=== PATIENT | female | born 1945 | race Caucasian/White ===

== ENCOUNTER 2018-03-04 09:15 | Observation (INO) | payer MEDICARE, OTHER ==
[~2018-03-04] VITALS: Ht 152.4 cm; Wt 68.0 kg
[~2018-03-04 09:15] MED LIST: CALCIUM; FISH OIL; GLUCOSAMINE CH1 EAC9; PRILOSEC; TRILIPIX; Z B COMPLEX PO; Z EFFEXOR PO; Z.0.SYNTHROID75 MCG PO
--- OUTSIDE RECORDS SUMMARY | 2018-03-04 09:18 | XMS REPORT | Clinical Summary ---
Author Author [facility] Address Unknown Phone Unavailable Care Team Providers Care Veneer Patcher Name Role Phone Aldair Soria MD PCP Allergies Active Allergy Reactions Severity Noted Date Comments Penicillins 07/28/2017 Current Medications Prescription Sig. Disp. Refills Start End Date Status Date SYNTHROID 75 mcg tablet 06/17/20 Active 17 venlafaxine XR 06/17/20 Active (EFFEXOR-XR) 75 MG 24 hr 17 capsule valGANciclovir (VALCYTE) Take 450 mg by mouth Active 450 mg tablet daily. multivitamin with Take 1 tablet by mouth Active minerals tablet daily. Saccharomyces boulardii Take 250 mg by mouth 2 Active (FLORASTOR) 250 mg (two) times a day. capsule Active Problems Not on file Encounters Date Type Specialty Care Team Description 09/18/2017 Office Visit Ophthalmology Zaida Nunez MD Benign tumor of eye, right (Primary Dx); Visual field defect; Retinal tumor of right eye; Disorder of visual pathway; Unspecified visual field defects 09/11/2017 [facility] Radiology Zaida Nunez MD Optic nerve lesion, Encounter right; Mass of optic nerve 09/11/2017 [facility] Radiology Zaida Nunez MD Gliosis of optic nerve, Encounter right; Optic nerve disease, unspecified laterality 08/08/2017 Telephone Ophthalmology Zaida Nunez MD 08/04/2017 Transcribe Access Zaida Nunez MD Gliosis of optic nerve, Orders right (Primary Dx); Optic nerve disease, unspecified laterality 07/28/2017 Office Visit Ophthalmology Zaida Nunez MD Mass of optic nerve (Primary Dx); Unspecified visual field defects; Disorder of visual pathway; Optic nerve lesion, right; Visual field defects; Pseudophakia of right eye; Nuclear cataract of left eye; Blurred vision, bilateral; Astigmatism with presbyopia, bilateral; Choroidal nevus of right eye 07/28/2017 Procedure Pass Radiology after 03/03/2017 Family History Medical History Relation Name Comments No Known Problems Brother No Known Problems Brother Heart attack Father No Known Problems Maternal Grandfather Stroke Maternal Grandmother Diabetes Mother No Known Problems Paternal Grandfather No Known Problems Paternal Grandmother Cancer Sister Diabetes Sister No Known Problems Sister Relation Name Status Comments Brother Alive Brother Alive Father Maternal Grandfather Maternal Grandmother Mother Paternal Grandfather Paternal Grandmother Sister Sister Alive Sister Alive Social History Tobacco Use Types Packs/Day Years Used Date Never Smoker Alcohol Use Drinks/Week oz/Week Comments No Sex Assigned at Date Recorded Not on file Last Filed Vital Signs Vital Sign Reading Time Taken Blood Pressure - - Pulse - - Temperature - - Respiratory Rate - - Oxygen Saturation - - Inhaled Oxygen - - Concentration Weight 68 kg (150 lb) 09/18/2017 11:18 AM SPINNER FIXER Height 152.4 cm (5') 09/18/2017 11:18 AM SPINNER FIXER Body Mass Index 29.29 09/18/2017 11:18 AM SPINNER FIXER Plan of Treatment Health Maintenance Due Date Last Done Comments COLONOSCOPY 1997 MAMMOGRAM 1997 SHINGRIX VACCINE (#1) 1997 ZOSTER VACCINE 2007 PNEUMOCOCCAL 2012 POLYSACCHARIDE VACCINE AGE 65 AND OVER PNEUMOCOCCAL-13 2012 INFLUENZA VACCINE 06/10/2018 Procedures Procedure Name Priority Date/Time Associated Diagnosis Comments AUTOMATED VISUAL FIELD, Routine 09/18/2017 Unspecified visual field Results for this EXTENDED - OU - BOTH EYES 11:33 AM SPINNER FIXER defects procedure are in the Benign tumor of eye, results section. right OCT, OPTIC NERVE - OU - Routine 09/18/2017 Disorder of visual Results for this BOTH EYES 11:33 AM SPINNER FIXER pathway procedure are in the Benign tumor of eye, results section. right AUTOMATED VISUAL FIELD, Routine 07/28/2017 Unspecified visual field Results for this EXTENDED - OU - BOTH EYES 2:30 PM CDT defects procedure are in the Optic nerve lesion, right results section. OCT, OPTIC NERVE - OU - Routine 07/28/2017 Disorder of visual Results for this BOTH EYES 2:30 PM CDT pathway procedure are in the Optic nerve lesion, right results section. after 03/03/2017 Results * Automated Visual Field, Extended - OU (09/18/2017 11:33 AM) Narrative Right Eye Threshold was 24-2. Strategy was OCTAVIO. -2.19. Findings include normal observations, non-specific defects. Left Eye Threshold was 24-2. Strategy was OCTAVIO. -3.33. Findings include normal observations, non-specific defects. * OCT, Optic Nerve - OU (09/18/2017 11:33 AM) Narrative OD: 81, 84 OS: 77, 80 * MRI Brain & Orbit W Wo Contrast (09/11/2017 1:35 PM) Specimen Performing Laboratory [facility] [address] [place] [address] Narrative EXAMINATION:MRI brain with and without contrast. MRI the orbits with and without contrast. CLINICAL HISTORY:H47.091 Other disorders of optic nervenot elsewhere classifiedright eye, H47.099 Other disorders of optic nervenot elsewhere classifiedunspecified eye, Right intraconal mass COMPARISON:None. FINDINGS: MRI ORBITS WITH AND WITHOUT CONTRAST: There is a small oval-shaped mass in the right intraconal fat just lateral to the optic nerve sheath. It measures 6.4 mm in AP dimension by 4.5 mm in transverse dimension by 5.8 mm in height. It shows mild increased signal on the T2-weighted images and decreased signal on the T1-weighted images. There is minimal enhancement in the posterior wall of the mass on the axial and coronal high-resolution images with contrast through the orbits. This is a nonspecific finding and could have benign or malignant etiologies. Correlation with old exams would be helpful to evaluate for any changes. There is normal signal intensity without abnormal enhancement in the optic nerves and chiasm. There is right pseudophakia. MRI BRAIN WITH AND WITHOUT CONTRAST: There is no evidence of acute infarct, intracranial hemorrhage or mass, hydrocephalus or midline shift.There is nonspecific enlargement of the ventricles and extra-axial space more prominent in the anterior region. The sella is enlarged and partially empty. IMPRESSION: Small nonspecific well-circumscribed mass in the mid third of the right intraconal fat just lateral to the optic nerve sheath. Enlarged partially empty sella. [id number] Procedure Note Interface, Radiology Results Incoming - 09/11/2017 3:06 PM CDT EXAMINATION: MRI brain with and without contrast. MRI the orbits with and without contrast. CLINICAL HISTORY: H47.091 Other disorders of optic nerve not elsewhere classified right eye, H47.099 Other disorders of optic nerve not elsewhere classified unspecified eye, Right intraconal mass COMPARISON: None. FINDINGS: MRI ORBITS WITH AND WITHOUT CONTRAST: There is a small oval-shaped mass in the right intraconal fat just lateral to the optic nerve sheath. It measures 6.4 mm in AP dimension by 4.5 mm in transverse dimension by 5.8 mm in height. It shows mild increased signal on the T2-weighted images and decreased signal on the T1-weighted images. There is minimal enhancement in the posterior wall of the mass on the axial and coronal high-resolution images with contrast through the orbits. This is a nonspecific finding and could have benign or malignant etiologies. Correlation with old exams would be helpful to evaluate for any changes. There is normal signal intensity without abnormal enhancement in the optic nerves and chiasm. There is right pseudophakia. MRI BRAIN WITH AND WITHOUT CONTRAST: There is no evidence of acute infarct, intracranial hemorrhage or mass, hydrocephalus or midline shift. There is nonspecific enlargement of the ventricles and extra-axial space more prominent in the anterior region. The sella is enlarged and partially empty. IMPRESSION: Small nonspecific well-circumscribed mass in the mid third of the right intraconal fat just lateral to the optic nerve sheath. Enlarged partially empty sella. [facility] [id number] * POC creatinine (09/11/2017 12:33 PM) Component Value Ref Range POC creatinine 0.8 0.5 - 0.9 mg/dl Specimen Performing Laboratory Blood [facility] DEPARTMENT OF PATHOLOGY AND GENOMIC MEDICINE [address] [place] [address] * Automated Visual Field, Extended - OU (07/28/2017 2:30 PM) Narrative Right Eye Threshold was 24-2. Strategy was OCTAVIO. -3.25. Findings include non-specific defects. Left Eye Threshold was 24-2. Strategy was OCTAVIO. -1.46. Findings include non-specific defects. * OCT, Optic Nerve - OU (07/28/2017 2:30 PM) Narrative OD: 84 OS: 80 after 03/03/2017 Insurance Payer Benefit Subscriber ID Type Phone Address Plan / Group HUMANA MEDICARE HUMANA xxxxxxxxx PPO MEDICARE PPO/PFFS/E [facility]
[2018-03-04] MEDS ORDERED: SODIUM CHLORIDE 0.9% 1000ML 1,000 ML IV STA (09:28)
[2018-03-04 09:52] LABS: BASOPHILS % 0.3 % (0.0-1.0); EOSINOPHILS # (AUTO) 0.1 (0.0-0.4); EOSINOPHILS % 0.7 % (0.0-6.0); HEMATOCRIT 38.3 % (34.2-44.1); HEMOGLOBIN 12.7 g/dL (12.0-16.0); LYMPHOCYTES # (AUTO) 0.5 (1.0-3.2); LYMPHOCYTES % 4.3 % (18.0-39.1); MEAN CORPUSCULAR HEMOGLOBIN 31.6 pg (28-32); MEAN CORPUSCULAR HGB CONC 33.2 g/dL (31-35); MEAN CORPUSCULAR VOLUME 95.3 fL (81-99); MONOCYTES # (AUTO) 0.4 (0.2-0.8); MONOCYTES % 3.1 % (4.4-11.3); NEUTROPHILS # (AUTO) 10.7 (2.1-6.9); NEUTROPHILS % 91.3 % (38.7-80.0); PLATELET COUNT 323 x10e3/uL (140-360); RED BLOOD COUNT 4.02 x10e6/uL (3.6-5.1); RED CELL DISTRIBUTION WIDTH 14.6 % (11.7-14.4)
[2018-03-04 10:12] LABS: ALANINE AMINOTRANSFERASE 17 IU/L (0-55); ALBUMIN 3.8 g/dL (3.5-5.0); ALBUMIN/GLOBULIN RATIO 1.2 (0.8-2.0); ALKALINE PHOSPHATASE 67 IU/L (40-150); ANION GAP 13.1 mmol/L (8-16); BLOOD UREA NITROGEN 23 mg/dL (7-26); BUN/CREATININE RATIO 32 (6-25); CARBON DIOXIDE 26 mmol/L (22-29); CHLORIDE 106 mmol/L (98-107); CREATINE KINASE 165 IU/L (29-168); CREATININE, SERUM 0.72 mg/dL (0.57-1.11); EST GLOMERULAR FILTRATION RATE > 60 ML/MIN (60-); GLUCOSE 122 mg/dL (74-118); MAGNESIUM 1.8 MG/DL (1.3-2.1); POTASSIUM 4.1 mmol/L (3.5-5.1); SODIUM 141 mmol/L (136-145)
[2018-03-04 10:23] LABS: INR 1.15; PROTHROMBIN TIME 13.8 seconds (11.9-14.5)
[2018-03-04 10:24] LABS: PARTIAL THROMBOPLASTIN TIME 27.2 seconds (23.8-35.5)
--- NOTE | 2018-03-04 11:21 | Diagnostic Imaging Report ---
EXAMINATION: Head CT HISTORY: Syncope, now shaft, lightheadedness, LOC, fever, UTI COMPARISON: None. TECHNIQUE: Multidetector axial images were obtained without contrast from the foramen magnum to the vertex . The images were reconstructed using brain and bone algorithms. Thin section brain images were reformatted into coronal and sagittal planes. Intravenous contrast: None. Motion/streaking artifact limits the evaluation of the skull base and posterior cranial fossa. FINDINGS: Parenchyma: 1. No abnormal densities. 2. No mass or hemorrhage. No CT evidence of acute territorial vascular insult. Extra-axial spaces:No abnormal density. No extra-axial fluid collections Brain volume: Normal for age. Ventricles: No hydrocephalus or displacement. Arteries: No density suggestive of thrombus. Dural sinuses: No abnormal density. Extra-axial spaces: No abnormal density. Foramen magnum: No mass, Chiari malformation, or basilar invagination. Sella: Enlarged, partially empty, mostly CSF field. Paranasal/mastoid sinuses: Imaged portions unremarkable. Skull/Scalp: No lytic or blastic lesions. No fractures. IMPRESSION: No intracranial abnormalities, particularly no hemorrhage, mass or acute cortical infarct. Signed by: Dr. Fiona Hurtado M.D. on 03/04/2018 11:17 AM
--- NOTE | 2018-03-04 11:26 | Diagnostic Imaging Report ---
PROCEDURE:X-RAY RIGHT ANKLE, COMPLETE TECHNIQUE: INDICATION: COMPARISON:None. FINDINGS:Comminuted nondisplaced fracture of the distal diaphysis of the right fibula. The fracture is in two major parts, the proximal component is at the level of the junction of the mid and distal diaphysis and the distal component is at the level of the syndesmosis. The major fracture fragments are in near anatomic alignment. No expansile lytic or sclerotic lesion. Minimal soft tissue swelling in the lateral malleolus. CONCLUSION: Comminuted fracture in the distal right fibula. Correlate clinically for instability. Dictated by: Shahid Flores M.D. on 03/04/2018 at 11:28 Electronically approved by: Shahid Flores M.D. on 03/04/2018 at 11:28
--- NOTE | 2018-03-04 11:28 | Diagnostic Imaging Report ---
PROCEDURE:X-RAY RIGHT FOOT, COMPLETE COMPARISON:None. INDICATIONS:FOOT PAIN FINDINGS: Partially visualized fracture of the distal right fibula. Otherwise, there are no fractures, dislocations, lytic or blastic lesions. Postoperative changes of the right first metatarsal. The bones are well-mineralized. The soft-tissues are unremarkable. CONCLUSION: No acute radiographic abnormality. Dictated by: Shahid Flores M.D. on 03/04/2018 at 11:29 Electronically approved by: Shahid Flores M.D. on 03/04/2018 at 11:29
--- NOTE | 2018-03-04 11:54 | Diagnostic Imaging Report ---
PROCEDURE: CT scan of the chest WITH intravenous contrast, using standard protocol. TECHNIQUE: The chest was scanned utilizing a multidetector helical scanner from the lung apex through the level of the adrenal glands after the IV administration of 100 cc of Isovue 370. Coronal and sagittal multiplanar reformations were obtained. COMPARISON: None. INDICATIONS: PUMONARY EMBOLISM FINDINGS: Lines/tubes: None. Lungs and Airways: The lungs and airways are normal with no focal abnormality demonstrated. Bibasilar atelectasis. Pleura: The pleural spaces are clear. Heart and mediastinum: The thyroid gland is normal. No significant mediastinal, hilar or axillary lymphadenopathy is seen. The heart and pericardium are within normal limits. Soft tissues: Normal. Abdomen: Limited contrast-enhanced views of the upper abdomen show no abnormality within the visualized liver, spleen, pancreas, or kidneys. Cholecystectomy. The adrenal glands are normal. Bones: The visualized bony thorax is within normal limits. IMPRESSION: No acute abnormality of the chest. No evidence of pulmonary arterial thromboembolism to the segmental level. Dictated by: Shahid Flores M.D. on 03/04/2018 at 11:55 Electronically approved by: Shahid Flores M.D. on 03/04/2018 at 11:55
[2018-03-04 11:56] LABS: CLARITY,URINE CLEAR (CLEAR); COLOR,URINE YELLOW (YELLOW); LEUKOCYTE ESTERASE ,URINE NEGATIVE (NEGATIVE); NITRITE,URINE POSITIVE (NEGATIVE); PROTEIN,URINE DIPSTICK NEGATIVE (NEGATIVE)
[2018-03-04 11:57] LABS: BILIRUBIN,URINE NEGATIVE (NEGATIVE); KETONES,URINE NEGATIVE (NEGATIVE); URINE UROBILINOGEN 0.2 mg/dL (0.2 - 1)
[2018-03-04] MEDS ORDERED: ASPIRIN 81 MG CHEW TAB PO ONE (12:00)
[2018-03-04] MEDS ORDERED: ENOXAPARIN SODIUM INJ 100 MG/ML SYR SC SCH (12:00)
[2018-03-04] MEDS ORDERED: ENOXAPARIN INJ 80 MG/0.8 ML SYR SC STA (12:01)
[2018-03-04 12:04] LABS: BACTERIA,URINE RARE /HPF; EPITHELIAL CELLS,URINE MODERATE /LPF; TRANSITIONAL EPI CELLS,URINE FEW
[2018-03-04] MEDS ORDERED: MORPHINE SULFATE 2 MG/ML SYR IV STA (12:45)
[2018-03-04] MEDS ORDERED: ONDANSETRON HCL 4 MG ORAL DISINTEGRATING TAB PO ONE (12:45)
--- OUTSIDE RECORDS SUMMARY | 2018-03-04 12:50 | XMS REPORT | Clinical Summary ---
Author Author [facility] Address Unknown Phone Unavailable Care Team Providers Care Icing Machine Operator Name Role Phone Aldair Soria MD PCP [...] visual pathway; Unspecified visual field defects 09/11/2017 [facility] Radiology Zaida Nunez MD Optic nerve lesion, Encounter right; Mass of optic nerve 09/11/2017 [facility] Radiology Zaida Nunez MD Gliosis of optic [...] 68 kg (150 lb) 09/18/2017 11:18 AM BUNDLE CLERK Height 152.4 cm (5') 09/18/2017 11:18 AM BUNDLE CLERK Body Mass Index 29.29 09/18/2017 11:18 AM BUNDLE CLERK Plan of Treatment Health Maintenance Due Date Last Done Comments COLONOSCOPY 1997 MAMMOGRAM 1997 SHINGRIX VACCINE (#1) 1997 ZOSTER VACCINE 2007 PNEUMOCOCCAL 2012 POLYSACCHARIDE VACCINE AGE 65 AND OVER PNEUMOCOCCAL-13 2012 INFLUENZA VACCINE 06/10/2018 Procedures Procedure Name Priority Date/Time Associated Diagnosis Comments AUTOMATED VISUAL FIELD, Routine 09/18/2017 Unspecified visual field Results for this EXTENDED - OU - BOTH EYES 11:33 AM BUNDLE CLERK defects procedure are in the Benign tumor of eye, results section. right OCT, OPTIC NERVE - OU - Routine 09/18/2017 Disorder of visual Results for this BOTH EYES 11:33 AM BUNDLE CLERK pathway procedure are in the Benign tumor [...] 1:35 PM) Specimen Performing Laboratory [facility] [address] [place] [address] Narrative EXAMINATION:MRI brain with and without contrast. [...] optic nerve sheath. Enlarged partially empty sella. [id number] Procedure Note Interface, Radiology Results Incoming - [...] optic nerve sheath. Enlarged partially empty sella. [id number] * POC creatinine (09/11/2017 12:33 PM) Component Value Ref Range POC creatinine 0.8 0.5 - 0.9 mg/dl Specimen Performing Laboratory Blood [facility] DEPARTMENT OF PATHOLOGY AND GENOMIC MEDICINE [address] [place] [address] * Automated Visual Field, Extended - OU [...] HUMANA MEDICARE HUMANA xxxxxxxxx PPO MEDICARE PPO/PFFS/E [facility]
--- OUTSIDE RECORDS SUMMARY | 2018-03-04 12:50 | XMS REPORT ---
Author Author [facility] Address Unknown Phone Unavailable Care Team Providers Care Heat Treater Helper Name Role Phone FEI RODRÍGUEZ Unavailable Unavailable Problems This patient has no known problems. Allergies, Adverse Reactions, Alerts This patient has no known allergies or adverse reactions. Medications This patient has no known medications. Results Test Description Test Time Test Comments Text Results Atomic Results Result Comments ANKLE 3 + VIEWS RIGHT [place] [id number] [place] [address] Patient Name: ROSA GALLAGHER MR #: [id number] : 1945 Age/Sex: 72/F Req #: [id number] [facility] Physician: Ordered by: FEI RODRÍGUEZ MD Report #: [id number] Location: ER Room/Bed: Procedure: [id number] DX/ANKLE 3 + VIEWS RIGHT Exam Date: 03/04/18 Exam Time: 1000 REPORT STATUS: Signed PROCEDURE: X-RAY RIGHT ANKLE, COMPLETE TECHNIQUE: INDICATION: COMPARISON: None. FINDINGS: Comminuted nondisplaced fracture of the distal diaphysis of the right fibula. The fracture is in two major parts, the proximal component is at the level of the junction of the mid and distal diaphysis and the distal component is at the level of the syndesmosis. The major fracture fragments are in near anatomic alignment. No expansile lytic or sclerotic lesion. Minimal soft tissue swelling in the lateral malleolus. CONCLUSION: Comminuted fracture in the distal right fibula. Correlate clinically for instability. Dictated by: Howard Sebastian M.D. on 03/04/2018 at 11:28 Electronically approved by: Howard Sebastian M.D. on 03/04/2018 at 11:28 Dictated By: HOWARD SEBASTIAN MD 1128 Transcribed By: SILVIA on 03/04/181127 COPY TO: FEI RODRÍGUEZ MD FOOT RIGHT COMPLETE [place] [address] Patient Name: ROSA GALLAGHER MR #: [id number] : 1945 Age/Sex: 72/F Req #: [id number] Adm Physician: Ordered by: FEI RODRÍGUEZ MD Report #: [id number] Location: ER Room/Bed: Procedure: [id number] DX/FOOT RIGHT COMPLETE Exam Date: 03/04/18 Exam Time: 1000 REPORT STATUS: Signed PROCEDURE: X-RAY RIGHT FOOT, COMPLETE COMPARISON: None. INDICATIONS: FOOT PAIN FINDINGS : Partially visualized fracture of the distal right fibula. Otherwise, there are no fractures, dislocations, lytic or blastic lesions. Postoperative changes of the right first metatarsal. The bones are well- mineralized. The soft-tissues are unremarkable. CONCLUSION: No acute radiographic abnormality. Dictated by: Howard Sebastian M.D. on 2017 at 11:29 Electronically approved by: Howard Sebastian M.D. on 2017 at 11:29 Dictated By: HOWARD SEBASTIAN MD 1129 Transcribed By: SILVIA on 03/04/18 112 COPY TO: FEI RODRÍGUEZ MD CT CHEST W [facility] [address] [place] [address] Patient Name: ROSA GALLAGHER MR #: [id number] : 1945 Age/Sex: 72/F Req #: [id number] Adm Physician: Ordered by: FEI RODRÍGUEZ MD Report #: [id number] Location: ER Room/Bed: Procedure: [id number] CT/CT CHEST W Exam Date: 03/04/18 Exam Time: 1040 REPORT STATUS: Signed PROCEDURE: CT scan of the chest WITH intravenous contrast, using standard protocol. TECHNIQUE: The chest was scanned utilizing a multidetector helical scanner from the lung apex through the level of the adrenal glands after the IV administration of 100 cc of Isovue 370. Coronal and sagittal multiplanar reformations were obtained. COMPARISON: None. INDICATIONS: PUMONARY EMBOLISM FINDINGS: Lines/tubes: None. Lungs and Airways: The lungs and airways are normal with no focal abnormality demonstrated. Bibasilar atelectasis. Pleura: The pleural spaces are clear. Heart and mediastinum: The thyroid gland is normal. No significant mediastinal, hilar or axillary lymphadenopathy is seen. The heart and pericardium are within normal limits. Soft tissues: Normal. Abdomen: Limited contrast-enhanced views of the upper abdomen show no abnormality within the visualized liver, spleen, pancreas, or kidneys. Cholecystectomy. The adrenal glands are normal. Bones: The visualized bony thorax is within normal limits. IMPRESSION: No acute abnormality of the chest. No evidence of pulmonary arterial thromboembolism to the segmental level. Dictated by: Howard Sebastian M.D. on 03/04/2018 at 11:55 Electronically approved by: Howard Sebastian M.D. on 03/04/2018 at 11:55 Dictated By: HOWARD SEBASTIAN MD 1155 Transcribed By: SILVIA on 03/04/18 1155 COPY TO: FEI RODRÍGUEZ MD CT BRAIN WO [facility] [address] [place] [address] Patient Name: ROSA GALLAGHER MR #: [id number] : 1945 Age/Sex: 72/F Req #: [id number] Adm Physician: Ordered by: FEI RODRÍGUEZ MD Report #: [id number] Location: ER Room/Bed: Procedure: [id number] CT/CT BRAIN WO Exam Date: 03/04/18 Exam Time: 1040 REPORT STATUS: Signed EXAMINATION: Head CT HISTORY: Syncope, now shaft, lightheadedness, LOC, fever, UTI COMPARISON: None. TECHNIQUE: Multidetector axial images were obtained without contrast from the foramen magnum to the vertex . The images were reconstructed using brain and bone algorithms. Thin section brain images were reformatted into coronal and sagittal planes. Intravenous contrast: None. Motion/streaking artifact limits the evaluation of the skull base and posterior cranial fossa. FINDINGS: Parenchyma: 1. No abnormal densities. 2. No mass or hemorrhage. No CT evidence of acute territorial vascular insult. Extra-axial spaces:No abnormal density. No extra-axial fluid collections Brain volume: Normal for age. Ventricles: No hydrocephalus or displacement. Arteries: No density suggestive of thrombus. Dural sinuses: No abnormal density. Extra-axial spaces: No abnormal density. Foramen magnum: No mass, Chiari malformation, or basilar invagination. Sella: Enlarged, partially empty, mostly CSF field. Paranasal/mastoid sinuses: Imaged portions unremarkable. Skull/Scalp : No lytic or blastic lesions. No fractures. IMPRESSION: No intracranial abnormalities, particularly no hemorrhage, mass or acute cortical infarct. Signed by: Dr. Monique Hurtado M.D. on 03/04/2018 11:17 AM Dictated By: MONIQUE HURTADO MD 111 Transcribed By: NICKIE on 03/04/18 111 COPY TO: FEI RODRÍGUEZ MD
[2018-03-04] MEDS ORDERED: SODIUM CHLORIDE 0.9% 50ML 50 ML ONE (14:32)
[2018-03-04] MEDS ORDERED: MORPHINE SULFATE 2 MG/ML SYR IV ONE (17:40)
[2018-03-04] MEDS ORDERED: ACETAMINOPHEN 325 MG TAB ONE (18:28)
[2018-03-04] MEDS ORDERED: ACETAMINOPHEN 325 MG TAB PO ONE (18:30)
[2018-03-04] MEDS ORDERED: ONDANSETRON HCL INJ 2 MG/ML VIAL IV PRN (19:00)
[2018-03-04] MEDS ORDERED: LEVOFLOXACIN 500MG/D5W 100ML 100 ML IV SCH (19:00)
[2018-03-04] MEDS ORDERED: ACETAMINOPHEN 325 MG TAB PO PRN (19:00)
[2018-03-04 19:09] LABS: CREATINE KINASE 112 IU/L (29-168)
[2018-03-04 20:00] VITALS: BP 138/86
[2018-03-04] MEDS ORDERED: ASPIR 8181 MG PO (20:25)
[2018-03-04] MEDS ORDERED: MELOXICAM7.5 MG PO (20:25)
[2018-03-04] MEDS ORDERED: VALACYCLOVIR500 MG PO (20:25)
[2018-03-04] MEDS ORDERED: CRESTOR10 MG PO (20:25)
[2018-03-04] MEDS ORDERED: ENOXAPARIN INJ 80 MG/0.8 ML SYR SC SCH (21:00)
[2018-03-05] MEDS ORDERED: MORPHINE SULFATE 2 MG/ML SYR ONE ×3 (00:33→11:20)
[2018-03-05] MEDS: MORPHINE SULFATE 2 MG/ML SYR IV PRN ×2 (00:46→11:15)
[2018-03-05 00:49] VITALS: BP 139/86
[2018-03-05 02:04] VITALS: BP 138/86
[2018-03-05] MEDS ORDERED: LEVOTHYROXINE SODIUM 75 MCG TAB PO SCH (06:00)
[2018-03-05 06:02] VITALS: BP 100/58
[2018-03-05 06:36] LABS: BASOPHILS % 0.5 % (0.0-1.0); EOSINOPHILS # (AUTO) 0.5 (0.0-0.4); EOSINOPHILS % 6.6 % (0.0-6.0); HEMATOCRIT 35.8 % (34.2-44.1); HEMOGLOBIN 11.8 g/dL (12.0-16.0); LYMPHOCYTES # (AUTO) 1.5 (1.0-3.2); LYMPHOCYTES % 18.7 % (18.0-39.1); MEAN CORPUSCULAR HEMOGLOBIN 31.6 pg (28-32); MONOCYTES # (AUTO) 0.7 (0.2-0.8); MONOCYTES % 8.8 % (4.4-11.3); NEUTROPHILS # (AUTO) 5.2 (2.1-6.9); NEUTROPHILS % 65.1 % (38.7-80.0); PLATELET COUNT 283 x10e3/uL (140-360); RED BLOOD COUNT 3.73 x10e6/uL (3.6-5.1)
[2018-03-05 07:04] LABS: ALANINE AMINOTRANSFERASE 14 IU/L (0-55); ALBUMIN 3.3 g/dL (3.5-5.0); ALBUMIN/GLOBULIN RATIO 1.1 (0.8-2.0); ALKALINE PHOSPHATASE 62 IU/L (40-150); ANION GAP 12.5 mmol/L (8-16); BLOOD UREA NITROGEN 16 mg/dL (7-26); BUN/CREATININE RATIO 20 (6-25); CALCIUM 9.6 mg/dL (8.4-10.2); CARBON DIOXIDE 23 mmol/L (22-29); CHLORIDE 109 mmol/L (98-107); CHOL/HDL RATIO 4.3 (3.0-3.6); CHOLESTEROL 116 MD/DL (0-199); CREATINE KINASE 94 IU/L (29-168); CREATININE, SERUM 0.79 mg/dL (0.57-1.11); EST GLOMERULAR FILTRATION RATE > 60 ML/MIN (60-); GLUCOSE 108 mg/dL (74-118); HDL CHOLESTEROL 27 MG/DL (40-60); LDL CHOLESTEROL 56 MG/DL (60-130); POTASSIUM 4.5 mmol/L (3.5-5.1); SODIUM 140 mmol/L (136-145); TRIGLYCERIDES 167 MG/DL (0-149)
[2018-03-05 07:24] LABS: THYROID STIMULATING HORMONE 3.101 uIU/mL (0.350-4.940)
[2018-03-05 07:47] VITALS: BP 118/73
[2018-03-05 08:00] VITALS: BP 118/73
[2018-03-05] MEDS ORDERED: VENLAFAXINE HCL 37.5MG XR CAP PO SCH (09:00)
--- NOTE | 2018-03-05 11:58 | History and Physical ---
CHIEF COMPLAINT: Fall and syncope. HISTORY OF PRESENT ILLNESS: Ms. Springer is a 72-year-old female. She reports that early this morning, around 1 a.m., she went to the bathroom and fainted and lost consciousness. She does not remember what happened, but the next thing she found out was that she was on the floor and her was trying to pick her up. She denies any chest pain, abdominal pain. She had preceding lightheadedness and some nausea and also had diarrhea. Two weeks ago she had a left hip replacement surgery, and she has been doing well. She fell and here they found that patient had comminuted fracture in the distal right fibula. She denies any complaints of chest pain and nausea now. REVIEW OF SYSTEMS: GENERAL: Denies any fever or chills. HEAD: Denies any head trauma. ENT: Denies any earache. CVS: Denies any chest pain. RESPIRATORY: Denies any shortness of breath. GI: Denies any nausea now. EXTREMITIES: Right leg pain. Rest of the review systems are negative except as in history of present illness. PAST MEDICAL HISTORY: Hypothyroidism, hyperlipidemia. PAST SURGICAL HISTORY: Left hip replacement. FAMILY AND SOCIAL HISTORY: She lives with her . 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 She does not smoke, does not drink. PHYSICAL EXAM: VITAL SIGNS: Temperature 100, pulse of 86, blood pressure 140/83, respiratory rate of 18, O2 sat 96%. T-max 100.4. SKIN: Warm and dry. HEENT: Head is atraumatic and normocephalic. Pupils are reactive NECK: Supple. CHEST: Clear to auscultation bilaterally. No wheezing, no crackles. HEART: S1 and S2 audible. ABDOMEN: Soft, nontender. EXTREMITIES: No clubbing or cyanosis. Left leg has no edema. The right leg is in dressing. She is unable to move because of the fracture. NEURO: She is awake, alert and no focal neurological deficit. LABS: White count of 11,000, hemoglobin 12.7. Platelets 323,000. Chemistry is sodium 141. Potassium 4.1, chloride 106, BUN 23, creatinine 0.7. INR is 1.15. CT of the chest did not show any evidence of pulmonary embolism to the segmental level and showed atelectasis. Fibular fracture on ankle x-ray. Brain CT was normal. EKG which was done in the emergency room showed normal sinus rhythm, no ST-T changes. ASSESSMENT: Ms. Springer is a 72-year-old female who presented with syncope, recent hip fracture surgery. Pulmonary embolism has been ruled out. Low-grade fever. Was having diarrhea. Possibility of gastroenteritis. CURRENT PROBLEMS, 1. Recent left hip fracture repair. 2. Fibular fracture. 3. Syncope. 4. Low-grade fever, source is not very clear. Chest CT is not showing any evidence of pneumonia, some atelectasis. PLAN: 1. I will start the patient on IV Levaquin and was not very clear, possibility of GI infection. 2. Orthopedic consultation for fibular fracture. 3. Discontinue the Lovenox on therapeutic dose. Start the patient on Lovenox subcu for DVT prophylaxis. 4. IV analgesics for pain control. 5. Resume the home medications. Job#: [id number]
[2018-03-05 12:19] VITALS: BP 124/75
--- NOTE | 2018-03-05 14:39 | Consultation ---
DATE OF CONSULTATION: March 04, 2018 CARDIAC CONSULTATION REASON FOR THE CONSULTATION: Syncope. HISTORY: [id number] lady who is relatively healthy. Patient does have degenerative joint disease. She had left hip replacement 2 weeks ago. She was at home. For couple of days, she is having low-grade fever. Today, she was not feeling well. She felt the urge to pass urine or bowel movement, she was queasy to her stomach. She went to the bathroom. While she was there, she started having cold sweats and she collapsed, she does not remember what happened. She fell, she fractured her right fibula. She came to the emergency room, admitted for further management, cardiac consultation is obtained. Patient is seen and evaluated in the emergency room. She denied having any chest pain prior to that. It seems her reaction is typical for vasovagal. 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 Patient denied having any prior cardiac catheterization. She denied having any angina prior to her hip surgery. There is no palpitation; and she had once or twice in the past in the last 4 years vasovagal reaction, latest 2 years ago. Patient denied having any pleuritic chest pain prior to these episodes. She denied having any sudden shortness of breath. She denied having any angina. There is no cough, no hemoptysis. REVIEW OF SYSTEMS: Extensive to all systems. Only pertinent positive and negative ones will be mentioned. CARDIAC: As per above. PULMONARY: As per above. GI: Constipation, but prior to the illness as described above nausea vomiting, etc. : Increased frequency of urination. MUSCULOSKELETAL: Patient does have several joints problem and she had recent left hip surgery. NEUROLOGICAL: No seizure activity, no headaches, no localized weakness. SOCIAL HISTORY: She is . She is nonsmoker, not an alcohol drinker. 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 HOME MEDICATIONS: Includes Valtrex, Synthroid 75 mcg a day, Effexor, vitamins; and following discharge from the hospital after her surgery, she was started on muscle relaxant, she does not remember the name and recently just started on statin. PAST MEDICAL HISTORY: 1. Left hip surgery 2 weeks ago. 2. Feet surgery. 3. Bilateral carpal tunnel surgery. 4. Cholecystectomy. 5. Back surgery. 6. Hypothyroidism. 7. Diagnosed of vasospastic angina, questionable details, but she has not used any nitro for long time. 8. Prior vasovagal reaction more than 2 years ago. FAMILY HISTORY: Father of massive myocardial infarction at age 57. Mother of congestive heart failure in her 90s. Four siblings, 2 brothers and 2 sisters, none with coronary artery disease. Four children, 1 son and 3 daughters are healthy. PHYSICAL EXAMINATION: VITAL SIGNS: Height of 5 feet 4 inches, weight of 170 pounds, blood pressure 110/60, heart rate of 80, respiratory rate of 18, temperature of 100.4. HEENT: Pupils are equal and reactive. NECK: No elevation of jugular venous pulsation. No bruit. CHEST: Clear to auscultation and percussion. HEART: PMI at fifth left intercostal space. Normal first and second heart sounds. ABDOMEN: Soft with good bowel sounds. No organomegaly. No abdominal bruits. EXTREMITIES: The right leg is in dressing and immobilized in dressing. The left leg, she is able to move it. There are no Betancourt's signs. NEUROLOGIC: Awake, alert, oriented. No motor deficits. LAB DATA: EKG showed no acute changes. CT head and chest are negative. White blood cell count of 11.8, hemoglobin of 12.7, hematocrit of 38%, platelet count of 324,000. Sodium of 141, potassium 4.1, BUN 23, creatinine of 0.7. Troponin is less than 0.01. PT of 13 seconds, PTT of 27 seconds. EKG showing normal sinus rhythm, low voltage nonspecific ST changes, poor R-wave progression. IMPRESSION AND PLAN: 1. Syncope, seems to be vasovagal by description. 2. Hypothyroidism. 3. Status post recent left hip surgery. 4. Fall and fracture of right fibula. 5. Past diagnosis of "vasospastic angina." Cardiac-doss my recommendation, checking an echocardiogram as ordered. Will check a carotid Doppler. Will check venous Doppler of the lower extremity to rule out deep venous thrombosis, although clinically it is not there. Will keep patient on telemetry. Will repeat laboratories and will see depending on her progression further steps to be done. Will follow patient's progression with you, and would like to thank you for your kind referral. Job#: [id number]
[2018-03-05] MEDS ORDERED: LEVAQUIN500 MG PO (14:52)
[2018-03-05] MEDS ORDERED: ENOXAPARIN SOD INJ 40 MG/0.4 ML SYR SC SCH (17:00)
--- NOTE | 2018-03-07 12:37 | Discharge Summary ---
FINAL DIAGNOSES 1. Syncope, likely vasovagal. 2. History of hypothyroidism. 3. Hyperlipidemia. 4. Recent hip fracture repair. 5. Fibular fracture. ADMISSION HISTORY AND HOSPITAL COURSE: Ms. Springer is a 72-year-old female. She presented with loss of consciousness. She went to the bathroom and was found unconscious by the . The patient has recent hip replacement surgery. Cardiology was consulted. CTPA was done which was negative for any blood clots. Venous Dopplers were also negative. The patient was found to have fibular fracture. Orthopedics was consulted and they recommended to follow up as an outpatient. The patient did well. Cardiology and orthopedics cleared the patient for discharge. The patient will be discharged and told to follow up with primary care physician. ESME BURNHAM MD Job#: [id number]
== END 2018-03-05 15:30 | disposition home or self-care (01) ==
LOC: ER 09:15 → ERHOLD 11:58 → INTOOBSV 11:58 → MED/SURG2 20:52
PROVIDERS: ADMIT Internal Medicine Pulmonary Disease; ATTEND Internal Medicine Pulmonary Disease
DX: R55 Syncope and collapse (principal); S82.61XA Displaced fracture of lateral malleolus of right fibula, initial encounter for closed fracture; S82.64XA Nondisplaced fracture of lateral malleolus of right fibula, initial encounter for closed fracture; Z96.642 Presence of left artificial hip joint; W18.30XA Fall on same level, unspecified, initial encounter; Y92.012 Bathroom of single-family (private) house as the place of occurrence of the external cause; R50.9 Fever, unspecified; E78.5 Hyperlipidemia, unspecified; E03.9 Hypothyroidism, unspecified; Z88.0 Allergy status to penicillin
CPT/HCPCS: 36415 ×2; 70450; 71260; 73610; 73630; 80053 ×2; 80061; 81001; 82550 ×2; 82553 ×2; 83735; 84443; 84484 ×2; 85025 ×2; 85610; 85730; 87086; 93005 ×2; 93880; 93970; 96372; 96374; 96376; 97116; 97161; 99284; G0378 ×2; J1650; J1956; J2270 ×2; J2405

== ENCOUNTER 2022-04-22 21:18 | Emergency (ER) | payer MEDICARE, OTHER ==
[~2022-04-22] VITALS: Ht 160 cm; Wt 68.0 kg
[~2022-04-22 21:18] MED LIST changes: +ASPIR 8181 MG PO; +CRESTOR10 MG PO; +LEVAQUIN500 MG PO; +MELOXICAM7.5 MG PO; +VALACYCLOVIR500 MG PO
[2022-04-22] MEDS ORDERED: SODIUM CHLORIDE 0.9% 1000ML 1,000 ML IV STA (21:51)
[2022-04-22] MEDS ORDERED: ONDANSETRON HCL INJ 2MG/ML 2ML 2 MG/ML VIAL IV PRN (22:00)
[2022-04-22] MEDS ORDERED: ACETAMINOPHEN 325 MG TAB PO ONE (22:30)
[2022-04-22] MEDS ORDERED: FENTANYL CITRATE/PF 100MCG/2 ML INJ IV PRN (22:30)
[2022-04-22] MEDS ORDERED: ACETAMINOPHEN 325 MG TAB ONE (22:39)
[2022-04-22 22:43] LABS: BASOPHILS # (AUTO) 0.1 (0.0-0.1); BASOPHILS % 0.5 % (0.0-1.0); EOSINOPHILS # (AUTO) 0.2 (0.0-0.4); EOSINOPHILS % 1.3 % (0.0-6.0); HEMATOCRIT 43.9 % (34.2-44.1); HEMOGLOBIN 14.3 g/dL (12.0-16.0); LYMPHOCYTES # (AUTO) 2.6 (1.0-3.2); LYMPHOCYTES % 19.7 % (18.0-39.1); MEAN CORPUSCULAR HEMOGLOBIN 31.9 pg (28-32); MEAN CORPUSCULAR HGB CONC 32.6 g/dL (31-35); NEUTROPHILS # (AUTO) 9.1 (2.1-6.9); NEUTROPHILS % 70.1 % (38.7-80.0); PLATELET COUNT 277 x10e3/uL (140-360); RED BLOOD COUNT 4.48 x10e6/uL (3.6-5.1); RED CELL DISTRIBUTION WIDTH 14.4 % (11.7-14.4)
[2022-04-22 22:46] LABS: CLARITY,URINE CLEAR (CLEAR); COLOR,URINE YELLOW (YELLOW); KETONES,URINE NEGATIVE (NEGATIVE); LEUKOCYTE ESTERASE ,URINE TRACE (NEGATIVE); NITRITE,URINE NEGATIVE (NEGATIVE); PROTEIN,URINE DIPSTICK NEGATIVE (NEGATIVE); URINE UROBILINOGEN 0.2 mg/dL (0.2 - 1)
[2022-04-22 22:52] LABS: BACTERIA,URINE FEW /HPF; EPITHELIAL CELLS,URINE RARE /LPF; RBC,URINE 0-5 /HPF (0-5)
[2022-04-22 23:05] LABS: ALBUMIN 3.9 g/dL (3.5-5.0); ALBUMIN/GLOBULIN RATIO 1.3 (0.8-2.0); ANION GAP 16.3 mmol/L (8-16); CALCIUM 10.5 mg/dL (8.4-10.2); CREATININE, SERUM 0.78 mg/dL (0.57-1.11); POTASSIUM 4.3 mmol/L (3.5-5.1)
[2022-04-23] MEDS ORDERED: IOPAMIDOL 370 MG/ML 100 ML INFUS..BTL INJ ONE (00:28)
[2022-04-23] MEDS ORDERED: MOXIFLOXACIN H400 MG PO (02:17)
== END 2022-04-23 02:39 | disposition home or self-care (01) ==
LOC: ER 21:52
DX: K57.92 Diverticulitis of intestine, part unspecified, without perforation or abscess without bleeding (principal); E03.9 Hypothyroidism, unspecified; E78.5 Hyperlipidemia, unspecified; F32.A Depression, unspecified; Z88.0 Allergy status to penicillin; Z79.82 Long term (current) use of aspirin; Z79.899 Other long term (current) drug therapy; Z86.16 Personal history of COVID-19; Z86.19 Personal history of other infectious and parasitic diseases
CPT/HCPCS: 36415; 74177; 80053; 81001; 83605; 83690; 85025; 87040; 99284; J2405; J7030; Q9967; U0002

== ENCOUNTER → 2022-06-19 | Day surgery (SDC) | payer MEDICARE ==
[2022-06-17 13:29] LABS: BASOPHILS # (AUTO) 0.1 (0.0-0.1); BASOPHILS % 1.2 % (0.0-1.0); EOSINOPHILS # (AUTO) 0.1 (0.0-0.4); EOSINOPHILS % 1.9 % (0.0-6.0); HEMATOCRIT 44.8 % (34.2-44.1); HEMOGLOBIN 14.8 g/dL (12.0-16.0); LYMPHOCYTES # (AUTO) 2.3 (1.0-3.2); MEAN CORPUSCULAR HEMOGLOBIN 32.4 pg (28-32); MONOCYTES # (AUTO) 0.7 (0.2-0.8); MONOCYTES % 9.8 % (4.4-11.3); NEUTROPHILS # (AUTO) 4.1 (2.1-6.9); NEUTROPHILS % 56.1 % (38.7-80.0); PLATELET COUNT 244 x10e3/uL (140-360); RED BLOOD COUNT 4.57 x10e6/uL (3.6-5.1); RED CELL DISTRIBUTION WIDTH 14.2 % (11.7-14.4)
[~2022-06-19] MED LIST changes: +BIOCLEANSE PO; +FENTANYL CITRATE/PF 100MCG/2 ML INJ ONE; +GLUCAGON FOR INJ 1 MG VIAL ONE; +HYOSCYAMINE SULFATE 0.5 MG/ML INJ ONE; +MIDAZOLAM HCL 2 MG/2 ML VIAL ONE; +MOXIFLOXACIN H400 MG PO; +MULTI-VITAMIN1 EACH PO; +NEURONTIN300 MG PO; +PRAVASTATIN SOD20 MG; +PROBIOTIC & AC1 EACH PO; +PROPOFOL IV EMULSION 10 MG/ML 20 ML VIAL ONE
[2022-06-19 09:05] VITALS: BP 125/92
== END | disposition home or self-care (01) ==
LOC: OR 06:18
PROVIDERS: ATTEND Internal Medicine Gastroenterology
DX: Z09 Encounter for follow-up examination after completed treatment for conditions other than malignant neoplasm (principal); Z86.010 Personal history of colon polyps; K57.92 Diverticulitis of intestine, part unspecified, without perforation or abscess without bleeding; K59.09 Other constipation; K64.8 Other hemorrhoids; Z71.3 Dietary counseling and surveillance; G47.33 Obstructive sleep apnea (adult) (pediatric); R03.0 Elevated blood-pressure reading, without diagnosis of hypertension; E03.9 Hypothyroidism, unspecified; E78.5 Hyperlipidemia, unspecified; F32.A Depression, unspecified; Z88.0 Allergy status to penicillin; Z88.6 Allergy status to analgesic agent; Z01.810 Encounter for preprocedural cardiovascular examination; Z01.812 Encounter for preprocedural laboratory examination; Z20.822 Contact with and (suspected) exposure to COVID-19; Z79.82 Long term (current) use of aspirin; Z79.899 Other long term (current) drug therapy; Z68.32 Body mass index [BMI] 32.0-32.9, adult; Z98.1 Arthrodesis status; Z86.16 Personal history of COVID-19
CPT/HCPCS: 0223U; 36415; 45378; 85025; 93005; J1610; J1980; J2250; J2704; J3010

== ENCOUNTER 2023-03-06 10:33 | Emergency (ER) | payer MEDICARE ==
[~2023-03-06] VITALS: Ht 160 cm; Wt 68.0 kg
[~2023-03-06 10:33] MED LIST changes: -FENTANYL CITRATE/PF 100MCG/2 ML INJ ONE; -GLUCAGON FOR INJ 1 MG VIAL ONE; -HYOSCYAMINE SULFATE 0.5 MG/ML INJ ONE; -MIDAZOLAM HCL 2 MG/2 ML VIAL ONE; -PROPOFOL IV EMULSION 10 MG/ML 20 ML VIAL ONE
[2023-03-06 11:08] LABS: BASOPHILS # (AUTO) 0.1 (0.0-0.1); BASOPHILS % 1.1 % (0.0-1.0); EOSINOPHILS # (AUTO) 0.2 (0.0-0.4); EOSINOPHILS % 3.3 % (0.0-6.0); HEMATOCRIT 47.4 % (34.2-44.1); HEMOGLOBIN 15.5 g/dL (12.0-16.0); LYMPHOCYTES % 31.8 % (18.0-39.1); MEAN CORPUSCULAR HEMOGLOBIN 32.2 pg (28-32); MEAN CORPUSCULAR HGB CONC 32.7 g/dL (31-35); MEAN CORPUSCULAR VOLUME 98.3 fL (81-99); MONOCYTES # (AUTO) 0.5 (0.2-0.8); MONOCYTES % 8.4 % (4.4-11.3); NEUTROPHILS # (AUTO) 3.5 (2.1-6.9); NEUTROPHILS % 55.1 % (38.7-80.0); PLATELET COUNT 259 x10e3/uL (140-360); RED BLOOD COUNT 4.82 x10e6/uL (3.6-5.1)
[2023-03-06 11:33] LABS: ALBUMIN 4.4 g/dL (3.5-5.0); ALBUMIN/GLOBULIN RATIO 1.5 (0.8-2.0); ANION GAP 15.1 mmol/L (8-16); CALCIUM 9.9 mg/dL (8.4-10.2); CREATININE, SERUM 0.8 mg/dL (0.57-1.11); POTASSIUM 4.1 mmol/L (3.5-5.1)
[2023-03-06 11:44] LABS: CLARITY,URINE CLEAR (CLEAR); COLOR,URINE YELLOW (YELLOW); KETONES,URINE NEGATIVE (NEGATIVE); LEUKOCYTE ESTERASE ,URINE NEGATIVE (NEGATIVE); NITRITE,URINE NEGATIVE (NEGATIVE); PROTEIN,URINE DIPSTICK NEGATIVE (NEGATIVE); URINE UROBILINOGEN 0.2 mg/dL (0.2 - 1)
[2023-03-06] MEDS ORDERED: IOPAMIDOL 370 MG/ML 100 ML INFUS..BTL INJ ONE (11:49)
[2023-03-06 12:20] LABS: BACTERIA,URINE FEW /HPF; EPITHELIAL CELLS,URINE FEW /LPF; RBC,URINE 0-5 /HPF (0-5); WBC,URINE (MAN) 0-5 /HPF (0-5)
[2023-03-06] MEDS ORDERED: ULTRAM 50MG50 MG PO (12:46)
== END 2023-03-06 14:19 | disposition home or self-care (01) ==
LOC: ER 10:38
DX: R10.31 Right lower quadrant pain (principal); M25.551 Pain in right hip; X50.0XXA Overexertion from strenuous movement or load, initial encounter; Y92.89 Other specified places as the place of occurrence of the external cause; Z96.643 Presence of artificial hip joint, bilateral
CPT/HCPCS: 36415; 73502; 74177; 80053; 81001; 85025; 99284; Q9967